=== PATIENT | female | born 1945 | race Native Hawaiian/Other Pacific Islander ===

== ENCOUNTER 2016-09-11 07:43 | Outpatient (CLI) | payer OTHER, MEDICARE | END 2016-09-11 19:09 | disposition home or self-care (01) | LOC: LABW 07:43 | PROVIDERS: Nurse Practitioner Adult Health | DX: E78.2 Mixed hyperlipidemia (principal); Z79.899 Other long term (current) drug therapy | CPT/HCPCS: 36415; 80061; 80076 ==

== ENCOUNTER 2016-10-31 14:58 | Outpatient (CLI) | payer OTHER, MEDICARE | END 2016-10-31 20:05 | disposition home or self-care (01) | LOC: MAMMO 14:58 | DX: Z12.31 Encounter for screening mammogram for malignant neoplasm of breast (principal) | CPT/HCPCS: G0202-TC ==

== ENCOUNTER 2017-03-25 07:45 | Outpatient (CLI) | payer OTHER, MEDICARE | END 2017-03-25 08:45 | disposition home or self-care (01) | LOC: LABW 07:45 | PROVIDERS: Nurse Practitioner Adult Health | DX: E78.2 Mixed hyperlipidemia (principal); Z79.899 Other long term (current) drug therapy; Z51.81 Encounter for therapeutic drug level monitoring | CPT/HCPCS: 36415; 80061; 80076 ==

== ENCOUNTER 2017-06-16 10:22 | Outpatient (CLI) | payer OTHER, MEDICARE | END 2017-06-16 20:24 | disposition home or self-care (01) | LOC: LABW 10:22 | PROVIDERS: Nurse Practitioner Adult Health | DX: E78.2 Mixed hyperlipidemia (principal); Z79.899 Other long term (current) drug therapy; Z51.81 Encounter for therapeutic drug level monitoring | CPT/HCPCS: 36415; 80061; 80076 ==

== ENCOUNTER 2017-09-12 11:15 | Outpatient (CLI) | payer OTHER, MEDICARE | END 2017-09-12 22:15 | disposition home or self-care (01) | LOC: LABW 11:15 | PROVIDERS: Nurse Practitioner Adult Health | DX: E78.2 Mixed hyperlipidemia (principal); Z79.899 Other long term (current) drug therapy; Z51.81 Encounter for therapeutic drug level monitoring | CPT/HCPCS: 36415; 80061; 80076 ==

== ENCOUNTER 2017-12-11 09:16 | Outpatient (CLI) | payer OTHER, MEDICARE | END 2017-12-11 19:12 | disposition home or self-care (01) | LOC: LABW 09:16 | PROVIDERS: Nurse Practitioner Adult Health | DX: E78.2 Mixed hyperlipidemia (principal); Z79.899 Other long term (current) drug therapy; Z51.81 Encounter for therapeutic drug level monitoring | CPT/HCPCS: 36415; 80061; 80076 ==

== ENCOUNTER 2018-01-02 09:57 | Outpatient (CLI) | payer OTHER, MEDICARE ==
[2018-01-02 10:26] LABS: PLATELET COUNT 234 K/uL (152-353)
[2018-01-02 10:31] LABS: POTASSIUM 4.7 mmol/L (3.6-5.2)
== END 2018-01-02 22:46 | disposition home or self-care (01) ==
LOC: MAMMO 09:57
PROVIDERS: Nurse Practitioner
DX: E55.9 Vitamin D deficiency, unspecified (principal); Z00.00 Encounter for general adult medical examination without abnormal findings; Z11.59 Encounter for screening for other viral diseases; Z13.1 Encounter for screening for diabetes mellitus; Z13.820 Encounter for screening for osteoporosis; Z12.31 Encounter for screening mammogram for malignant neoplasm of breast; Z78.0 Asymptomatic menopausal state; Z79.899 Other long term (current) drug therapy
CPT/HCPCS: 36415; 80053; 82306; 83036; 85027; 86803

== ENCOUNTER 2018-01-15 09:07 | Outpatient (CLI) | payer OTHER, MEDICARE ==
[2018-01-15 09:30] LABS: POTASSIUM 4.2 mmol/L (3.6-5.2)
[2018-01-15 09:31] LABS: PLATELET COUNT 217 K/uL (152-353)
== END 2018-01-15 23:18 | disposition home or self-care (01) ==
LOC: LABW 09:07
PROVIDERS: Specialist
DX: E03.9 Hypothyroidism, unspecified (principal); R07.2 Precordial pain; Z01.810 Encounter for preprocedural cardiovascular examination; R93.1 Abnormal findings on diagnostic imaging of heart and coronary circulation
CPT/HCPCS: 36415; 80053; 84443; 85027

== ENCOUNTER 2018-03-02 10:43 | Outpatient (CLI) | payer OTHER, MEDICARE | END 2018-03-02 19:53 | disposition home or self-care (01) | LOC: LABW 10:43 | PROVIDERS: Nurse Practitioner Adult Health | DX: I25.10 Atherosclerotic heart disease of native coronary artery without angina pectoris (principal); E78.2 Mixed hyperlipidemia; Z79.899 Other long term (current) drug therapy | CPT/HCPCS: 36415; 80061; 80076 ==

== ENCOUNTER 2018-05-22 08:42 | Outpatient (CLI) | payer OTHER, MEDICARE | END 2018-05-22 19:11 | disposition home or self-care (01) | LOC: LABW 08:42 | PROVIDERS: Nurse Practitioner Adult Health | DX: E78.2 Mixed hyperlipidemia (principal); Z79.899 Other long term (current) drug therapy | CPT/HCPCS: 36415; 80061; 80076 ==

== ENCOUNTER 2018-08-27 10:44 | Outpatient (CLI) | payer OTHER, MEDICARE | END 2018-08-27 20:31 | disposition home or self-care (01) | LOC: LABW 10:44 | PROVIDERS: Nurse Practitioner Adult Health | DX: I25.10 Atherosclerotic heart disease of native coronary artery without angina pectoris (principal); E78.2 Mixed hyperlipidemia; Z79.899 Other long term (current) drug therapy | CPT/HCPCS: 36415; 80061; 80076 ==

== ENCOUNTER 2018-11-18 11:16 | Outpatient (CLI) | payer OTHER, MEDICARE | END 2018-11-18 23:11 | disposition home or self-care (01) | LOC: LABW 11:16 | PROVIDERS: Nurse Practitioner Adult Health | DX: E78.2 Mixed hyperlipidemia (principal); Z79.899 Other long term (current) drug therapy | CPT/HCPCS: 36415; 80061; 80076 ==

== ENCOUNTER 2019-02-10 10:52 | Outpatient (CLI) | payer OTHER, MEDICARE | END 2019-02-10 23:43 | disposition home or self-care (01) | LOC: LABW 10:52 | PROVIDERS: Nurse Practitioner Adult Health | DX: E78.2 Mixed hyperlipidemia (principal); Z79.899 Other long term (current) drug therapy | CPT/HCPCS: 36415; 80061; 80076 ==

== ENCOUNTER 2019-03-03 10:08 | Outpatient (CLI) | payer OTHER, MEDICARE | END 2019-03-03 23:29 | disposition home or self-care (01) | LOC: MAMMO 10:08 | DX: Z12.31 Encounter for screening mammogram for malignant neoplasm of breast (principal) ==

== ENCOUNTER 2019-06-22 11:23 | Outpatient (CLI) | payer OTHER, MEDICARE | END 2019-06-22 20:07 | disposition home or self-care (01) | LOC: LABW 11:23 | PROVIDERS: Nurse Practitioner Adult Health | DX: I25.10 Atherosclerotic heart disease of native coronary artery without angina pectoris (principal); E78.2 Mixed hyperlipidemia; Z79.899 Other long term (current) drug therapy | CPT/HCPCS: 36415; 80061; 80076 ==

== ENCOUNTER 2019-12-29 10:40 | Outpatient (CLI) | payer OTHER, MEDICARE | END 2019-12-29 21:29 | disposition home or self-care (01) | LOC: LABW 10:40 | PROVIDERS: Nurse Practitioner Adult Health | DX: E78.2 Mixed hyperlipidemia (principal); Z79.899 Other long term (current) drug therapy | CPT/HCPCS: 36415; 80061; 80076 ==

== ENCOUNTER 2020-05-11 12:35 | Outpatient (CLI) | payer OTHER, MEDICARE | END 2020-05-11 19:06 | disposition home or self-care (01) | LOC: MAMMO 12:35 | PROVIDERS: ATTEND Nurse Practitioner Family | DX: Z12.31 Encounter for screening mammogram for malignant neoplasm of breast (principal) ==

== ENCOUNTER 2020-05-24 13:23 | Outpatient (CLI) | payer OTHER, MEDICARE ==
[2020-05-24 13:40] LABS: PLATELET COUNT 187 K/uL (152-353)
[2020-05-24 14:03] LABS: POTASSIUM 4.5 mmol/L (3.6-5.2)
== END 2020-05-24 19:42 | disposition home or self-care (01) ==
LOC: LABW 13:23
PROVIDERS: ATTEND Nurse Practitioner Family
DX: G89.29 Other chronic pain (principal); I10 Essential (primary) hypertension; E03.8 Other specified hypothyroidism; E78.00 Pure hypercholesterolemia, unspecified; Z79.899 Other long term (current) drug therapy; E55.9 Vitamin D deficiency, unspecified
CPT/HCPCS: 36415; 80053; 80061; 82306; 83036; 84439; 84443; 84481; 85027

== ENCOUNTER 2020-07-10 09:42 | Outpatient (CLI) | payer OTHER, MEDICARE | END 2020-07-10 22:49 | disposition home or self-care (01) | LOC: LABW 09:42 | PROVIDERS: ATTEND Nurse Practitioner Adult Health | DX: E78.2 Mixed hyperlipidemia (principal); Z79.899 Other long term (current) drug therapy | CPT/HCPCS: 36415; 80061; 80076 ==

== ENCOUNTER 2020-08-21 10:35 | Outpatient (CLI) | payer OTHER, MEDICARE ==
[2020-08-21 11:02] LABS: PLATELET COUNT 178 K/uL (152-353)
[2020-08-21 11:17] LABS: POTASSIUM 4.4 mmol/L (3.6-5.2)
== END 2020-08-21 19:12 | disposition home or self-care (01) ==
LOC: LABW 10:35
PROVIDERS: ATTEND Specialist
DX: Z01.810 Encounter for preprocedural cardiovascular examination (principal); R94.39 Abnormal result of other cardiovascular function study
CPT/HCPCS: 36415; 80053; 85027

== ENCOUNTER 2020-09-18 13:06 | Outpatient (CLI) | payer OTHER, MEDICARE ==
[2020-09-18 13:37] LABS: PLATELET COUNT 200 K/uL (152-353)
[2020-09-18 13:44] LABS: POTASSIUM 4.5 mmol/L (3.6-5.2)
== END 2020-09-18 23:42 | disposition home or self-care (01) ==
LOC: LAB 13:06
PROVIDERS: ATTEND Nurse Practitioner Family
DX: G89.29 Other chronic pain (principal); E78.00 Pure hypercholesterolemia, unspecified; I10 Essential (primary) hypertension; F32.9 Major depressive disorder, single episode, unspecified; I25.10 Atherosclerotic heart disease of native coronary artery without angina pectoris; M54.41 Lumbago with sciatica, right side; Z79.899 Other long term (current) drug therapy; E53.8 Deficiency of other specified B group vitamins; E55.9 Vitamin D deficiency, unspecified
CPT/HCPCS: 80053; 80061; 82306; 82607; 83036; 84439; 84443; 85027

== ENCOUNTER 2021-01-09 10:21 | Outpatient (CLI) | payer OTHER, MEDICARE | END 2021-01-09 19:30 | disposition home or self-care (01) | LOC: US 10:21 | PROVIDERS: ATTEND Nurse Practitioner Family | DX: R74.8 Abnormal levels of other serum enzymes (principal) ==

== ENCOUNTER 2022-04-23 12:43 | Outpatient (CLI) | payer OTHER, MEDICARE ==
[2022-04-23 13:16] LABS: PLATELET COUNT 196 K/uL (152-353)
[2022-04-23 13:36] LABS: POTASSIUM 3.9 mmol/L (3.6-5.2)
== END 2022-04-23 19:20 | disposition home or self-care (01) ==
LOC: LAB 12:43
PROVIDERS: ATTEND Nurse Practitioner Family
DX: E11.9 Type 2 diabetes mellitus without complications (principal); E78.49 Other hyperlipidemia; E03.8 Other specified hypothyroidism; G89.29 Other chronic pain; Z79.899 Other long term (current) drug therapy; E55.9 Vitamin D deficiency, unspecified; R74.8 Abnormal levels of other serum enzymes; I25.10 Atherosclerotic heart disease of native coronary artery without angina pectoris; G25.81 Restless legs syndrome; R68.89 Other general symptoms and signs; I10 Essential (primary) hypertension
CPT/HCPCS: 80053; 80061; 82306; 83036; 84439; 84443; 85027